=== PATIENT | female | born 1950 | race Caucasian/White ===

== ENCOUNTER 2019-12-15 11:18 | Inpatient (IN) | payer OTHER ==
[~2019-12-15] VITALS: Ht 160 cm; Wt 94.0 kg
[2019-12-16] MEDS ORDERED: METOCLOPRAMIDE H5 MG (09:00)
[2019-12-16] MEDS ORDERED: DICYCLOMINE HCL20 MG (09:01)
[2019-12-16] MEDS ORDERED: METFORMIN HCL500 M4 (09:01)
[2019-12-16] MEDS ORDERED: DOLOGEN CAPLET1 EACH (09:01)
[2019-12-16] MEDS ORDERED: GABAPENTIN100 M2 (09:01)
[2019-12-16] MEDS ORDERED: ZESTRIL5 MG (09:01)
[2019-12-16] MEDS ORDERED: LOSARTAN POTASS50 MG (09:04)
[2019-12-16] MEDS ORDERED: PEPCID AC20 MG (09:04)
[2019-12-28] MEDS ORDERED: FENTANYL1 EAC3 TD (13:04)
[2019-12-28] MEDS ORDERED: OXYC1TAB9 PO (13:04)
== END 2019-12-28 13:46 | disposition home or self-care (01) | DRG 330 ==
LOC: SURH 11:18
PROVIDERS: Urology; ADMIT Colon & Rectal Surgery
PROC: BW21ZZZ Computerized Tomography (CT Scan) of Abdomen and Pelvis (ICD-10-PCS; 2019-12-16)
PROC: 0DBM8ZX Excision of Descending Colon, Via Natural or Artificial Opening Endoscopic, Diagnostic (ICD-10-PCS; 2019-12-19)
PROC: 0T768DZ Dilation of Right Ureter with Intraluminal Device, Via Natural or Artificial Opening Endoscopic (ICD-10-PCS; 2019-12-20)
PROC: 0DNW4ZZ Release Peritoneum, Percutaneous Endoscopic Approach (ICD-10-PCS; principal; 2019-12-20 10:45)
PROC: 0D1B4Z4 Bypass Ileum to Cutaneous, Percutaneous Endoscopic Approach (ICD-10-PCS; 2019-12-20 10:45)
DX: C78.6 Secondary malignant neoplasm of retroperitoneum and peritoneum (principal); N13.1 Hydronephrosis with ureteral stricture, not elsewhere classified; G62.0 Drug-induced polyneuropathy; T45.1X5S Adverse effect of antineoplastic and immunosuppressive drugs, sequela; I11.9 Hypertensive heart disease without heart failure; K57.30 Diverticulosis of large intestine without perforation or abscess without bleeding; K64.2 Third degree hemorrhoids; Z85.038 Personal history of other malignant neoplasm of large intestine